=== PATIENT | male | born 1965 | race Asian ===

== ENCOUNTER 2020-04-03 10:24 | Outpatient (CLI) | payer OTHER | END 2020-04-03 23:29 | disposition home or self-care (01) | LOC: RAD 10:24 | DX: R06.02 Shortness of breath (principal); R07.1 Chest pain on breathing | CPT/HCPCS: 93005 ==

== ENCOUNTER 2020-06-24 13:19 | Outpatient (CLI) | payer OTHER | END 2020-06-24 21:09 | disposition home or self-care (01) | LOC: RAD 13:19 | PROVIDERS: ATTEND Nurse Practitioner Family | DX: R05 Cough (principal); R06.02 Shortness of breath; M54.9 Dorsalgia, unspecified; J44.9 Chronic obstructive pulmonary disease, unspecified ==

== ENCOUNTER 2020-07-20 08:49 | Outpatient (CLI) | payer OTHER | END 2020-07-20 21:06 | disposition home or self-care (01) | LOC: RESP 08:49 | PROVIDERS: ATTEND Internal Medicine Sleep Medicine | DX: R06.02 Shortness of breath (principal) ==